=== PATIENT | female | born 1965 | race Caucasian/White ===

== ENCOUNTER 2017-05-17 16:03 | Inpatient (IN) | payer BC, SELFPAY ==
[~2017-05-17] VITALS: Ht 165.1 cm; Wt 65.2 kg
[~2017-05-17 16:03] MED LIST: ALPR.25 PO; ASPI325 PO; HYDCHL12.5 PO; HYDGUAL120 PO; INSU100I6 SC; LEVEMIR FL100 UNIT/1 SC; LISI5 PO; METF500C PO; NICO21TP TOP; SULTRIDS PO
[2017-05-17 16:29] LABS: BASOPHILS ABSOLUTE AUTO 0.03 K/mm3 (0.00-0.23); BASOPHILS PERCENT AUTO 0 % (0-2); EOSINOPHILS ABSOLUTE AUTO 0.15 K/mm3 (0.00-0.68); EOSINOPHILS PERCENT AUTO 1 % (0-6); Hematocrit 36.5 % (33.0-51.0); Hemoglobin 12.8 g/dL (11.5-16.0); IMMATURE GRAN ABSOLUTE AUTO 0.04 K/mm3 (0.00-0.10); IMMATURE GRAN PERCENT AUTO 0 % (0-1); LYMPHOCYTES ABSOLUTE AUTO 1.59 K/mm3 (0.84-5.20); LYMPHOCYTES PERCENT AUTO 11 % (21-46); MONOCYTES ABSOLUTE AUTO 1.04 K/mm3 (0.16-1.47); MONOCYTES PERCENT AUTO 7 % (4-13); Mean Corpuscular HGB 31.9 pg (26.0-34.0); Mean Corpuscular HGB Conc 35.1 g/dL (31.5-36.5); Mean Corpuscular Volume 91 fL (80-100); NEUTROPHILS ABSOLUTE AUTO 12.31 K/mm3 (1.96-9.15); NEUTROPHILS PERCENT AUTO 81 % (41-73); Platelet Count 274 K/mm3 (150-400); RDW Coefficient Variation 11.7 % (11.7-14.2); RDW Standard Deviation 39.3 fL (35.1-46.3); Red Blood Cell Count 4.01 M/mm3 (3.80-5.20); White Blood Cell Count 15.16 K/mm3 (4.00-11.30)
[2017-05-17 16:58] LABS: Alanine Aminotransfer (ALT/SGP 16 U/L (12-78); Albumin, Blood 3.1 g/dL (3.4-5.0); Albumin/Globulin Ratio 0.7 (0.8-1.8); Alk Phos 106 U/L (50-136); Anion Gap 9 mmol/L (6-16); Aspartate Aminotrans (AST/SGOT 13 U/L (12-37); Bilirubin, Total 0.4 mg/dL (0.1-1.0); Blood Urea Nitrogen 18 mg/dL (8-24); Bun/Creatinine Ratio 29.3 (12.0-20.0); CO2, Blood 26 mmol/L (21-32); Calcium, Blood 8.8 mg/dL (8.5-10.1); Chloride, Blood 97 mmol/L (98-108); Creatinine, Blood 0.61 mg/dL (0.40-1.00); Globulin, Blood 4.5 g/dL (2.2-4.0); Glomerular Filtration Rate >60 (60-); Glucose, Blood 188 mg/dL (70-99); Potassium, Blood 3.9 mmol/L (3.5-5.5); Sodium, Blood 132 mmol/L (136-145); Total Protein, Blood 7.6 g/dL (6.4-8.2)
[2017-05-18] MEDS ORDERED: BASAGLAR K100 UNIT/1 SC (04:58)
[2017-05-18] MEDS ORDERED: ASPI325 PO (05:00)
[2017-05-18] MEDS ORDERED: CENTRUM ADULTS1 EACH PO (05:00)
[2017-05-18] MEDS ORDERED: VIT D3 PO (05:03)
[2017-05-18 05:20] LABS: Hematocrit 33.3 % (33.0-51.0); Mean Corpuscular HGB 32.1 pg (26.0-34.0); Mean Corpuscular Volume 89 fL (80-100); Mean Platelet Volume 9.8 fL (9.1-12.4); Platelet Count 238 K/mm3 (150-400); RDW Coefficient Variation 11.6 % (11.7-14.2); RDW Standard Deviation 37.7 fL (35.1-46.3); Red Blood Cell Count 3.74 M/mm3 (3.80-5.20); White Blood Cell Count 11.61 K/mm3 (4.00-11.30)
[2017-05-18 05:37] LABS: Anion Gap 10 mmol/L (6-16); Blood Urea Nitrogen 17 mg/dL (8-24); Bun/Creatinine Ratio 25.5 (12.0-20.0); CO2, Blood 23 mmol/L (21-32); Calcium, Blood 8.4 mg/dL (8.5-10.1); Chloride, Blood 101 mmol/L (98-108); Creatinine, Blood 0.67 mg/dL (0.40-1.00); Glomerular Filtration Rate >60 (60-); Glucose, Blood 110 mg/dL (70-99); Potassium, Blood 4.2 mmol/L (3.5-5.5); Sodium, Blood 134 mmol/L (136-145)
[2017-05-18 08:17] LABS: Source, Urine Clean Catch
[2017-05-18 08:30] LABS: Bilirubin, Urine Neg (Neg); Blood, Urine 5+ (Neg); Glucose Qualitative, Urine Neg (Neg); Ketones, Urine Neg (Neg); Leukocyte Esterase, Urine 2+ (Neg); Nitrite, Urine Neg (Neg); Protein, Urine 2+ (Neg); Urobilinogen, Urine NORM (Normal)
[2017-05-18 08:43] LABS: Appearance, Urine Hazy (Clear); Color, Urine Yellow (P-Yellow)
[2017-05-18 08:45] LABS: Bacteria Mod /hpf; Squamous Epithelial Cells Mod /hpf (Few)
[2017-05-18] MEDS ORDERED: HYDR1TAB94 PO (16:10)
[2017-05-18] MEDS ORDERED: GAVILAX17 GM PO (16:10)
== END 2017-05-18 22:10 | disposition home or self-care (01) | DRG 418 ==
LOC: ER 16:03 → SURS 17:56
PROVIDERS: Internal Medicine; Psychiatry & Neurology Psychiatry; Surgery
PROC: BF031ZZ Plain Radiography of Gallbladder and Bile Ducts using Low Osmolar Contrast (ICD-10-PCS; 2017-05-18)
PROC: 0FT44ZZ Resection of Gallbladder, Percutaneous Endoscopic Approach (ICD-10-PCS; principal; 2017-05-18 09:00)
DX: K81.0 Acute cholecystitis (principal); E87.1 Hypo-osmolality and hyponatremia; E11.40 Type 2 diabetes mellitus with diabetic neuropathy, unspecified; I10 Essential (primary) hypertension; F17.200 Nicotine dependence, unspecified, uncomplicated; Z79.4 Long term (current) use of insulin; Z79.84 Long term (current) use of oral hypoglycemic drugs; Z79.899 Other long term (current) drug therapy
CPT/HCPCS: 36415; 74300; 76705; 80048; 80053; 81001; 81025; 82947; 83036; 83690; 84439; 84443; 85025; 85027; 87086; 88304; 96374; 96375; 99285; C1729; C9113; J1100; J1170; J1650; J1885; J2250; J2370; J2405; J2543; J2765; J3010; J7030; J7042; J7120

== ENCOUNTER 2017-10-11 23:33 | Emergency (ER) | payer BC, SELFPAY ==
[~2017-10-11 23:33] MED LIST changes: +BASAGLAR K100 UNIT/1 SC; +CENTRUM ADULTS1 EACH PO; +GAVILAX17 GM PO; +HYDR1TAB94 PO; +VIT D3 PO
[2017-10-12] MEDS ORDERED: Norco 5-325 Ta1 EACH PO (09:30)
[2017-10-12] MEDS ORDERED: KETO10 PO (09:30)
== END 2017-10-12 01:30 | disposition left against medical advice (07) ==
LOC: ER 23:33
DX: Z53.21 Procedure and treatment not carried out due to patient leaving prior to being seen by health care provider (principal)

== ENCOUNTER 2017-10-12 08:33 | Emergency (ER) | payer BC, SELFPAY ==
[~2017-10-12] VITALS: Ht 165.1 cm; Wt 70.3 kg
[2017-10-12] MEDS ORDERED: KETO10 PO (09:30)
[2017-10-12] MEDS ORDERED: Norco 5-325 Ta1 EACH PO (09:30)
== END 2017-10-12 09:50 | disposition home or self-care (01) ==
LOC: ER 08:33
DX: M75.51 Bursitis of right shoulder (principal); I10 Essential (primary) hypertension; E11.9 Type 2 diabetes mellitus without complications; E78.5 Hyperlipidemia, unspecified; F17.200 Nicotine dependence, unspecified, uncomplicated; Z79.899 Other long term (current) drug therapy; Z79.4 Long term (current) use of insulin; Z79.82 Long term (current) use of aspirin
CPT/HCPCS: 73030; 99283

== ENCOUNTER 2017-12-16 13:06 | Observation (INO) | payer BC, SELFPAY ==
[~2017-12-16] VITALS: Ht 160 cm; Wt 78.6 kg
[~2017-12-16 13:06] MED LIST changes: +KETO10 PO; +Norco 5-325 Ta1 EACH PO
[2017-12-16] MEDS ORDERED: INSULANPEN SC (13:43)
[2017-12-16 14:13] LABS: BASOPHILS ABSOLUTE AUTO 0.06 K/mm3 (0.00-0.23); BASOPHILS PERCENT AUTO 1 % (0-2); EOSINOPHILS PERCENT AUTO 2 % (0-6); Hematocrit 41.6 % (33.0-51.0); Hemoglobin 14.7 g/dL (11.5-16.0); IMMATURE GRAN ABSOLUTE AUTO 0.02 K/mm3 (0.00-0.10); IMMATURE GRAN PERCENT AUTO 0 % (0-1); LYMPHOCYTES ABSOLUTE AUTO 1.91 K/mm3 (0.84-5.20); LYMPHOCYTES PERCENT AUTO 21 % (21-46); MONOCYTES ABSOLUTE AUTO 0.57 K/mm3 (0.16-1.47); MONOCYTES PERCENT AUTO 6 % (4-13); Mean Corpuscular HGB 31.7 pg (26.0-34.0); Mean Corpuscular HGB Conc 35.3 g/dL (31.5-36.5); Mean Corpuscular Volume 90 fL (80-100); Mean Platelet Volume 10.6 fL (9.1-12.4); NEUTROPHILS ABSOLUTE AUTO 6.57 K/mm3 (1.96-9.15); NEUTROPHILS PERCENT AUTO 71 % (41-73); Platelet Count 256 K/mm3 (150-400); RDW Coefficient Variation 12.2 % (11.7-14.2); RDW Standard Deviation 39.8 fL (35.1-46.3); Red Blood Cell Count 4.63 M/mm3 (3.80-5.20); White Blood Cell Count 9.33 K/mm3 (4.00-11.30)
[2017-12-16 14:26] LABS: International Normalized Ratio 0.95; Prothrombin Time Results 9.8 Sec (9.7-11.5)
[2017-12-16 14:29] LABS: Alanine Aminotransfer (ALT/SGP 22 U/L (12-78); Albumin, Blood 3.4 g/dL (3.4-5.0); Albumin/Globulin Ratio 0.7 (0.8-1.8); Alk Phos 119 U/L (50-136); Anion Gap 7 mmol/L (6-16); Aspartate Aminotrans (AST/SGOT 17 U/L (12-37); Bilirubin, Total 0.4 mg/dL (0.1-1.0); Blood Urea Nitrogen 19 mg/dL (8-24); Bun/Creatinine Ratio 28.1 (12.0-20.0); CO2, Blood 24 mmol/L (21-32); Calcium, Blood 9.1 mg/dL (8.5-10.1); Chloride, Blood 104 mmol/L (98-108); Creatinine, Blood 0.68 mg/dL (0.40-1.00); Globulin, Blood 4.6 g/dL (2.2-4.0); Glomerular Filtration Rate >60 (60-); Glucose, Blood 210 mg/dL (70-99); Potassium, Blood 4.4 mmol/L (3.5-5.5); Sodium, Blood 135 mmol/L (136-145)
[2017-12-16 15:25] LABS: Source, Urine Clean Catch
[2017-12-16 15:32] LABS: Appearance, Urine Hazy (Clear); Blood, Urine 2+ (Neg); Color, Urine Yellow (P-Yellow); Glucose Qualitative, Urine Neg (Neg); Ketones, Urine 1+ (Neg); Leukocyte Esterase, Urine 3+ (Neg); Nitrite, Urine Neg (Neg); Protein, Urine 2+ (Neg); Specific Gravity, Urine 1.025 (1.003-1.022); Urobilinogen, Urine 1+ (Normal)
[2017-12-16 15:46] LABS: U Amphetamine Screen DETECTED; U Barbituate Screen Not Detected; U Benzodiazapine Screen DETECTED; U Buprenorphine Screen Not Detected; U Cannabinoids Screen DETECTED; U Cocaine Screen Not Detected; U Methadone Screen Not Detected; U Methamphetamine Screen DETECTED; U Opiates Screen Not Detected; U Oxycodone Screen Not Detected; U Phencyclidine Screen Not Detected; U Propoxyphene Screen Not Detected
[2017-12-16 15:47] LABS: Bilirubin, Urine 1+ (Neg)
[2017-12-16 15:48] LABS: Bacteria Many /hpf; Squamous Epithelial Cells Mod /hpf (Few); White Blood Cells, Urine 25-50 /hpf (0-5)
[2017-12-16 15:49] LABS: Hyaline Casts 0-2 /lpf (0-2)
[2017-12-17 04:31] LABS: Hematocrit 38.7 % (33.0-51.0); Hemoglobin 13.4 g/dL (11.5-16.0); Mean Corpuscular HGB 31.1 pg (26.0-34.0); Mean Corpuscular HGB Conc 34.6 g/dL (31.5-36.5); Mean Corpuscular Volume 90 fL (80-100); Mean Platelet Volume 10.5 fL (9.1-12.4); Platelet Count 234 K/mm3 (150-400); RDW Standard Deviation 39.8 fL (35.1-46.3); Red Blood Cell Count 4.31 M/mm3 (3.80-5.20); White Blood Cell Count 8.41 K/mm3 (4.00-11.30)
[2017-12-17 04:47] LABS: Anion Gap 7 mmol/L (6-16); Blood Urea Nitrogen 28 mg/dL (8-24); Bun/Creatinine Ratio 32.8 (12.0-20.0); CO2, Blood 27 mmol/L (21-32); Calcium, Blood 8.7 mg/dL (8.5-10.1); Chloride, Blood 103 mmol/L (98-108); Creatinine, Blood 0.85 mg/dL (0.40-1.00); Glomerular Filtration Rate >60 (60-); Glucose, Blood 144 mg/dL (70-99); Sodium, Blood 137 mmol/L (136-145)
[2017-12-17] MEDS ORDERED: CLOP75 PO (14:37)
[2017-12-17] MEDS ORDERED: Bactrim Ds Tab1 EACH PO (14:38)
[2017-12-17] MEDS ORDERED: ACIDOPHILUS LA1 EACH PO (14:39)
[2017-12-17] MEDS ORDERED: Augmentin 875-1 EACH PO (14:40)
== END 2017-12-17 15:05 | disposition home or self-care (01) ==
LOC: ER 13:06 → MEDS 13:07
PROVIDERS: Nurse Practitioner Acute Care; Physician Assistant
DX: G45.9 Transient cerebral ischemic attack, unspecified (principal); N39.0 Urinary tract infection, site not specified; E11.9 Type 2 diabetes mellitus without complications; I10 Essential (primary) hypertension; F41.9 Anxiety disorder, unspecified; F17.210 Nicotine dependence, cigarettes, uncomplicated; F19.10 Other psychoactive substance abuse, uncomplicated; Z79.4 Long term (current) use of insulin; Z79.899 Other long term (current) drug therapy; Z79.82 Long term (current) use of aspirin
CPT/HCPCS: 36415; 70450; 80048; 80053; 81001; 82947; 83605; 85025; 85027; 85610; 87040; 87086; 87147; 93005; 93010; 93306; 93880; 96361; 96372; 99285-25; G0378; J1650; J7030

== ENCOUNTER 2023-06-08 15:23 | Inpatient (IN) | payer MEDICAID ==
[~2023-06-08] VITALS: Ht 160 cm; Wt 52.2 kg
[~2023-06-08 15:23] MED LIST changes: +ACIDOPHILUS LA1 EACH PO; +Augmentin 875-1 EACH PO; +Bactrim Ds Tab1 EACH PO; +CLOP75 PO; +INSULANPEN SC
[2023-06-08 16:52] LABS: BASOPHILS ABSOLUTE AUTO 0.07 K/mm3 (0.00-0.23); BASOPHILS PERCENT AUTO 1 % (0-2); EOSINOPHILS ABSOLUTE AUTO 0.27 K/mm3 (0.00-0.68); EOSINOPHILS PERCENT AUTO 3 % (0-6); Hematocrit 39.4 % (33.0-51.0); IMMATURE GRAN ABSOLUTE AUTO 0.03 K/mm3 (0.00-0.10); IMMATURE GRAN PERCENT AUTO 0 % (0-1); LYMPHOCYTES ABSOLUTE AUTO 2.69 K/mm3 (0.84-5.20); LYMPHOCYTES PERCENT AUTO 28 % (21-46); MONOCYTES ABSOLUTE AUTO 0.55 K/mm3 (0.16-1.47); MONOCYTES PERCENT AUTO 6 % (4-13); Mean Corpuscular HGB 31.1 pg (26.0-34.0); Mean Corpuscular HGB Conc 35.5 g/dL (31.5-36.5); Mean Corpuscular Volume 88 fL (80-100); Mean Platelet Volume 10.5 fL (9.1-12.4); NEUTROPHILS ABSOLUTE AUTO 6.04 K/mm3 (1.96-9.15); NEUTROPHILS PERCENT AUTO 63 % (41-73); Platelet Count 312 K/mm3 (150-400); RDW Coefficient Variation 11.7 % (11.7-14.2); RDW Standard Deviation 37.5 fL (35.1-46.3); White Blood Cell Count 9.65 K/mm3 (4.00-11.30)
[2023-06-08 17:13] LABS: Source, Urine Clean Catch
[2023-06-08 17:18] LABS: Appearance, Urine Hazy (Clear); Bilirubin, Urine Neg (Neg); Blood, Urine 1+ (Neg); Color, Urine Yellow (P-Yellow); Glucose Qualitative, Urine 3+ (Neg); Ketones, Urine 1+ (Neg); Leukocyte Esterase, Urine 2+ (Neg); Nitrite, Urine Pos (Neg); Protein, Urine 3+ (Neg); Specific Gravity, Urine 1.025 (1.003-1.022); Urobilinogen, Urine NORM (Normal)
[2023-06-08 17:24] LABS: Red Blood Cells, Urine 0-2 /hpf (0-2); White Blood Cells, Urine 25-50 /hpf (0-5)
[2023-06-08 17:25] LABS: Bacteria Many /hpf; Squamous Epithelial Cells Mod /hpf (Few)
[2023-06-08 17:28] LABS: Albumin, Blood 2.9 g/dL (3.4-5.0); Albumin/Globulin Ratio 0.7 (0.8-1.8); Bilirubin, Total 0.6 mg/dL (0.1-1.0); Bun/Creatinine Ratio 38.2 (12.0-20.0); Calcium, Blood 9.1 mg/dL (8.5-10.1); Creatinine, Blood 0.76 mg/dL (0.40-1.00); Globulin, Blood 4.1 g/dL (2.2-4.0); Potassium, Blood 3.9 mmol/L (3.5-5.5)
[2023-06-08] MEDS ORDERED: CefTRIAXone Sodium 1,000 MG in NS 50 ML IV ONE (20:45)
[2023-06-08] MEDS ORDERED: NS 1,000 ML IV SCH ×2 (21:00→21:20)
[2023-06-08] MEDS ORDERED: Aspirin 81 MG Chew PO ONE (21:20)
[2023-06-08] MEDS ORDERED: ALPRAZolam 0.25 MG Tab PO PRN (21:20)
[2023-06-08] MEDS ORDERED: Ondansetron HCl 2 MG / ML 2ML Vial IV PRN (21:20)
[2023-06-08 21:25] LABS: Source, Urine Straight Cath
[2023-06-08] MEDS ORDERED: Acetaminophen 325 MG TABLET PO PRN (21:25)
[2023-06-08] MEDS ORDERED: FLU VACC QS2023-24(6MOS UP)/PF 60 MCG/0.5 ML SYRINGE IM SCH (21:25)
[2023-06-08 21:29] LABS: Appearance, Urine Hazy (Clear); Bilirubin, Urine Neg (Neg); Blood, Urine 1+ (Neg); Color, Urine Yellow (P-Yellow); Glucose Qualitative, Urine 2+ (Neg); Ketones, Urine 1+ (Neg); Leukocyte Esterase, Urine Neg (Neg); Nitrite, Urine Pos (Neg); Protein, Urine 3+ (Neg); Specific Gravity, Urine 1.025 (1.003-1.022); Urobilinogen, Urine NORM (Normal)
[2023-06-08] MEDS ORDERED: GLIP5 PO (21:37)
[2023-06-08] MEDS ORDERED: ATOR20 PO (21:37)
[2023-06-08] MEDS ORDERED: INSULANI SC (21:38)
[2023-06-08 21:42] LABS: Mucus Mod (0-Heavy)
[2023-06-08 21:43] LABS: Amorphous Light (0-Heavy); Bacteria Many /hpf; Red Blood Cells, Urine 0-2 /hpf (0-2); Squamous Epithelial Cells Few /hpf (Few)
[2023-06-08 21:45] LABS: U Amphetamine Screen DETECTED; U Barbituate Screen Not Detected; U Benzodiazapine Screen Not Detected; U Buprenorphine Screen Not Detected; U Cannabinoids Screen Not Detected; U Cocaine Screen Not Detected; U Methadone Screen Not Detected; U Methamphetamine Screen DETECTED; U Opiates Screen Not Detected; U Oxycodone Screen Not Detected; U Phencyclidine Screen Not Detected
--- NOTE | 2023-06-08 23:40 | NUR ---
ADMISSION PT ADITTED TO ROOM 356 FROM THE ED, ARRIVED VIA WC, SBA TO BED, A&O X4, RA, VSS, DENIES PAIN. PT ORIENTED TO ROOM, CALL LIGHT IN REACH,
[2023-06-08 23:41] VITALS: BP 167/66
[2023-06-09 02:56] VITALS: BP 159/79
--- NOTE | 2023-06-09 05:34 | NUR ---
SHIFT SUMMARY PT HAS BEEN RESTING QUIETLY SINCE ADMISSION, A&O X4, PERRLA, NO DEFICITS NOTED, VSS/RA, SBA TO THE BATHROOM, DELMAR PO INTAKE, VOIDING WNL, SLEEPING AT THIS TIME, RESP UNLABORED, CALL LIGHT IN REACH.
[2023-06-09 06:47] LABS: Anion Gap 4 mmol/L (6-16); Blood Urea Nitrogen 29 mg/dL (8-24); Bun/Creatinine Ratio 39.2 (12.0-20.0); CHOL/HDL RATIO 5.6; CO2, Blood 26 mmol/L (21-32); Chloride, Blood 105 mmol/L (98-108); Cholesterol 173 mg/dL (50-200); Creatinine, Blood 0.74 mg/dL (0.40-1.00); Glomerular Filtration Rate 93 (60-); Glucose, Blood 409 mg/dL (70-99); HDL Cholesterol 31 mg/dL (>39); LDL/HDL RATIO 2.2; Low Density Lipoprotein Chol 68 mg/dL (0-110); Potassium, Blood 3.9 mmol/L (3.5-5.5); Sodium, Blood 135 mmol/L (136-145); Triglycerides 368 mg/dL (30-160); Very Low Density Lipoprot Chol 73 mg/dL (6-32)
[2023-06-09] MEDS ORDERED: Insulin Human Lispro 100 Units/ML 3ML Syringe SC SCH ×2 (07:30→11:30)
[2023-06-09 08:19] VITALS: BP 176/71
[2023-06-09] MEDS ORDERED: Aspirin 81 MG Chew PO SCH (09:00)
[2023-06-09] MEDS ORDERED: Atorvastatin 40 MG Tab PO SCH (09:00)
[2023-06-09] MEDS ORDERED: Enoxaparin 40 MG/0.4 ML SYR SC SCH (09:00)
[2023-06-09 11:33] VITALS: BP 169/74
[2023-06-09] MEDS ORDERED: Clopidogrel Bisulfate 75 MG Tab PO SCH (16:00)
[2023-06-09 17:09] VITALS: BP 249/95
[2023-06-09] MEDS ORDERED: CloNIDine 0.1 MG Tab PO PRN (18:35)
--- NOTE | 2023-06-09 18:45 | NUR ---
SHIFT SUMMARY: NO ACUTE EVENTS. NO DEFICITS NOTED ON THIS AUTHOR'S NEURO EXAM. NO EVENTS ON TELEMETRY, SR 70-90'S. SSI INCREASED TO MED CORRECTION SCALE. DENIES PAIN. ECHO, MRI, CAROTID U/S, AND VENOUS DUPLEX COMPLETED. USING BSC INDEPENDENTLY. HAD SHOWER TODAY, INDEPENDENT AFTER SET UP. LIKELY D/C HOME TOMORROW.
[2023-06-09 19:55] VITALS: BP 185/73
[2023-06-09] MEDS ORDERED: Insulin Glargine-Yfgn 100 Unit/mL 3 ML SYR SC SCH ×2 (21:00)
[2023-06-10] VITALS (8 sets, daily range): BP systolic 95–200; BP diastolic 58–90
[2023-06-10 05:03] LABS: BASOPHILS ABSOLUTE AUTO 0.09 K/mm3 (0.00-0.23); BASOPHILS PERCENT AUTO 1 % (0-2); EOSINOPHILS ABSOLUTE AUTO 0.37 K/mm3 (0.00-0.68); EOSINOPHILS PERCENT AUTO 4 % (0-6); Hematocrit 34.8 % (33.0-51.0); Hemoglobin 12.4 g/dL (11.5-16.0); IMMATURE GRAN ABSOLUTE AUTO 0.01 K/mm3 (0.00-0.10); IMMATURE GRAN PERCENT AUTO 0 % (0-1); LYMPHOCYTES ABSOLUTE AUTO 3.15 K/mm3 (0.84-5.20); LYMPHOCYTES PERCENT AUTO 34 % (21-46); MONOCYTES ABSOLUTE AUTO 0.63 K/mm3 (0.16-1.47); MONOCYTES PERCENT AUTO 7 % (4-13); Mean Corpuscular HGB 30.8 pg (26.0-34.0); Mean Corpuscular HGB Conc 35.6 g/dL (31.5-36.5); Mean Corpuscular Volume 87 fL (80-100); Mean Platelet Volume 10.1 fL (9.1-12.4); NEUTROPHILS ABSOLUTE AUTO 5.14 K/mm3 (1.96-9.15); NEUTROPHILS PERCENT AUTO 55 % (41-73); Platelet Count 244 K/mm3 (150-400); RDW Coefficient Variation 11.6 % (11.7-14.2); RDW Standard Deviation 36.9 fL (35.1-46.3); Red Blood Cell Count 4.02 M/mm3 (3.80-5.20); White Blood Cell Count 9.39 K/mm3 (4.00-11.30)
[2023-06-10 05:33] LABS: Bun/Creatinine Ratio 26.2 (12.0-20.0); Creatinine, Blood 0.57 mg/dL (0.40-1.00); Potassium, Blood 3.8 mmol/L (3.5-5.5)
--- NOTE | 2023-06-10 06:41 | NUR ---
Shift Summary Pt AOx4, no deficits on neuro exam, no acute changes. Pt was hypertensive t/o the night, however per chart notes and PRN order we are doing permissive hypertension unless systolic is greater than 200 which did not happen. She is pleasant and cooperative with care.
[2023-06-10] MEDS ORDERED: Citalopram Hydrobromide 20 MG Tab PO SCH (09:00)
[2023-06-10] MEDS ORDERED: CloNIDine 0.1 MG Tab PO PRN (09:25)
[2023-06-10] MEDS ORDERED: Lisinopril 5 MG Tab PO SCH ×2 (10:00)
--- NOTE | 2023-06-10 10:00 | NUR ---
LISINOPRIL DOSE CHANGE- CALLED DR ZAMUDIO, PT BP WAS 190'S THIS MORNING,LISINOPRIL WAS ORDERED, ON RECHECK PRIOR TO LISINOPRIL SBP WAS 131. CALLED DR ZAMUDIO AND RECIEVED ORDER TO CHANGE TO 2.5MG DAILY AND ADMINISTER THAT DOSE TODAY. ORDER CHANGED IN ORDER MANAGEMENT.
--- NOTE | 2023-06-10 10:40 | NUR ---
PT DAUGHTER ASKED ABOUT URINE CULTURE- PT HAS A URINE CULTURE THAT WAS CLEAN CATCH THAT RESULTED IN GROWTH BUT A STRAIGHT CATH CULTURE THAT SHOWS UNKNOWN GROWTH, PRELIMINARY RESULT. PT DAUGHTER ASKED ABOUT ABX. CALLED DR ZAMUDIO, SHE IS PLACING AN ORDER FOR ABX.
[2023-06-10] MEDS ORDERED: Amoxicillin/Clavulanate K 875 MG Tab PO SCH (11:00)
--- NOTE | 2023-06-10 11:24 | NUR ---
PT DAUGHTER EXPRESSED CONCERN- AGTER SITTING WITH THE PT FOR A WHILE HER DAUGHTER CAME INTO THE [facility] TO ASKED THAT THE DR BE INFORMED THAT THE PT SEEMS VERY OFF WHEN COMPARED TO PREVIOUS. SHE IS CONCERNED THAT THE PT IS MORE TIRED AND THAT SHE IS SPEAKING IN A STREAM OF THOUGHTS THAT SEEM TO MAKE NO SENSE TO HER. PT DOES SEEM A LITTLE SLEEPY TODAY, VSS AT THIS TIME. NO S&S OF DISTRESS NOTED.
--- NOTE | 2023-06-10 19:45 | NUR ---
SHIFT SUMMARY- PT HAS HAD HIGH BPS OFF AND ON TODAY. MEDICATED WITH XANAX IN LINDA OF CLONIDINE AFTER SPEAKING TO DR ZAMUDIO, SOME POSSIBLE CONCERN FOR METH WITHDRAWL. BP ONLY REDUCED A FEW POINTS AFTER AN HOUR, MEDICATED WITH CLONIDINE AND SBP WAS 166 ON FOLLOW UP BP. PT IN BED, SLEEPING AT THE TIME OF REPORT, SHE WOKE TO STAFF VOICES AND PARTICIPATED IN BEDSIDE REPORT. NO S&S OF DISTRESS NOTED AT THE TIME OF BEDSIDE REPORT. PASSED ON TO NIGHT RN PT PULLED HER IV ACCIDENTALLY AT 1830. SHE WILL NEED NEW ACCESS.
[2023-06-10] MEDS ORDERED: Lactobacil 2-S.Thermo-Bifido 1 1 Cap PO SCH (21:00)
[2023-06-11 02:47] VITALS: BP 137/64
--- NOTE | 2023-06-11 06:21 | NUR ---
SHIFT SUMMARY: PT IS ADMITTED FOR ACUTE CVA AND IS A FULL CODE. IS ALERT AND ABLE TO MAKE NEEDS KNOWN. ADLs HAVE BEEN 1P STANDBY DURING THIS SHIFT. DENIES PAIN OR DISCOMFORT WHEN ASKED. PLACED 22G IV IN LEFT FOREARM DAY NURSE REPORTED LAST ONE WAS FOUND NOT TO BE THERE JUST BEFORE SHIFT CHANGE. SARAI REPORTS SINUS AT 61. DAUGHTER CALLED AND SPOKE WITH THIS NURSE RIGHT AFTER SHIFT ASSESSMENT AND IV PLACEMENT. DAUGHTER STATED THAT SHE WAS CONCERNED ABOUT HER MOTHER SHE HAD JUST GOTTEN OFF THE PHONE WITH HER AND STATED THAT SHE WAS SLURRING HER SPEECH AND NOT ABLE TO MAKE RATIONAL STATEMENTS. THIS NURSE INFORMED THE DAUGHTER THAT THE REASON THAT IT TOOK A MINUTE TO ANSWER THE PHONE WAS DUE TO THE ASSESSMENT AND IV PLACEMENT ON HER MOTHER. THOSE ITEMS THAT SHE WAS EXPRESSING CONCERN OVER WERE NOT NOTED DURING THAT TIME PERIOD. THE ONLY THING THAT THIS NURSE NOTED WAS SOME EXHAUSTION TYPE SYMPTOMS WHERE SHE MIGHT MIGHT HAVE BEEN TRYING TO FIND THE WORD SHE WAS LOOKING FOR A BIT LONGER THAN AN AVERAGE PERSON. BUT THAT WOULD BE EXPECTED GIVEN HISTORY OF THE DAY AND ADMITTING DX.
[2023-06-11 07:36] VITALS: BP 134/70
[2023-06-11] MEDS ORDERED: Lisinopril 5 MG Tab PO SCH (09:00)
[2023-06-11] MEDS ORDERED: AMOCLA875 PO (11:16)
[2023-06-11] MEDS ORDERED: ASPI81CH PO (11:17)
[2023-06-11] MEDS ORDERED: CELEXA40 M1 PO (11:18)
[2023-06-11] MEDS ORDERED: CLOP75 PO (11:19)
[2023-06-11] MEDS ORDERED: LACT PO (11:19)
--- NOTE | 2023-06-11 15:42 | NUR ---
DISCHARGE NOTE- PT AND DAUGHTER RECIEVED VERBAL AND WRITTEN DISCHARGE INSTRUCTIONS AND ACKNOWLEDGED UNDERSTANDING OF THEM. PT IV AND TELE DC'D PRIOR TO DISCHARGE AND SHE WAS ESCORTED OUT VIA WC BY THE FARM MANAGER NO S&S OF DISTRESS AT THE TIME OF DISCHARGE.
== END 2023-06-11 13:36 | disposition home health service (06) | DRG 65 ==
LOC: ER 15:23 → MEDS 15:24
PROVIDERS: Internal Medicine; Nurse Practitioner Acute Care; Physician Assistant; ADMIT Internal Medicine
DX: I63.532 Cerebral infarction due to unspecified occlusion or stenosis of left posterior cerebral artery (principal); F15.23 Other stimulant dependence with withdrawal; G81.91 Hemiplegia, unspecified affecting right dominant side; N39.0 Urinary tract infection, site not specified; R20.0 Anesthesia of skin; I10 Essential (primary) hypertension; E11.9 Type 2 diabetes mellitus without complications; E78.5 Hyperlipidemia, unspecified; F17.210 Nicotine dependence, cigarettes, uncomplicated; F41.9 Anxiety disorder, unspecified; H54.7 Unspecified visual loss; B96.20 Unspecified Escherichia coli [E. coli] as the cause of diseases classified elsewhere; Z71.51 Drug abuse counseling and surveillance of drug abuser; Z90.89 Acquired absence of other organs; Z79.2 Long term (current) use of antibiotics; Z79.4 Long term (current) use of insulin; Z79.82 Long term (current) use of aspirin; Z79.02 Long term (current) use of antithrombotics/antiplatelets; Z79.899 Other long term (current) drug therapy
CPT/HCPCS: 36415; 70450; 70551; 80048; 80053; 80061; 81001; 82010; 82947; 85025; 87077; 87086; 87186; 93306; 93880; 93970; 96361; 96365; 96372; 97116; 97162; 97530; 99285-25; A9270; G0378; J0696; J1650; J1815; J7030; P9612

== ENCOUNTER 2023-09-08 20:10 | Emergency (ER) | payer OTHER ==
[~2023-09-08] VITALS: Ht 165.1 cm; Wt 71.7 kg
[2023-09-08 23:56] VITALS: BP 180/68
== END 2023-09-08 23:56 | disposition home or self-care (01) ==
LOC: ER 20:10
DX: I10 Essential (primary) hypertension (principal); R21 Rash and other nonspecific skin eruption; R60.0 Localized edema; L30.9 Dermatitis, unspecified; E11.9 Type 2 diabetes mellitus without complications; E78.5 Hyperlipidemia, unspecified; F17.210 Nicotine dependence, cigarettes, uncomplicated; Z79.4 Long term (current) use of insulin; Z79.82 Long term (current) use of aspirin; Z79.899 Other long term (current) drug therapy

== ENCOUNTER 2023-11-28 20:50 | Inpatient (IN) | payer MEDICARE, OTHER ==
[~2023-11-28] VITALS: Ht 165.1 cm; Wt 71.0 kg
[~2023-11-28 20:50] MED LIST changes: +AMOCLA875 PO; +ASPI81CH PO; +ATOR80 PO; +CELEXA40 M1 PO; +GLIP5 PO; +INSULANI SC; +LACT PO
[2023-11-28 21:38] LABS: BASOPHILS PERCENT AUTO 1 % (0-2); EOSINOPHILS ABSOLUTE AUTO 0.34 K/mm3 (0.00-0.68); EOSINOPHILS PERCENT AUTO 3 % (0-6); Hematocrit 34.4 % (33.0-51.0); Hemoglobin 12.3 g/dL (11.5-16.0); IMMATURE GRAN ABSOLUTE AUTO 0.02 K/mm3 (0.00-0.10); IMMATURE GRAN PERCENT AUTO 0 % (0-1); LYMPHOCYTES ABSOLUTE AUTO 2.07 K/mm3 (0.84-5.20); LYMPHOCYTES PERCENT AUTO 21 % (21-46); MONOCYTES ABSOLUTE AUTO 0.75 K/mm3 (0.16-1.47); MONOCYTES PERCENT AUTO 8 % (4-13); Mean Corpuscular HGB 31.4 pg (26.0-34.0); Mean Corpuscular HGB Conc 35.8 g/dL (31.5-36.5); Mean Corpuscular Volume 88 fL (80-100); Mean Platelet Volume 10.5 fL (9.1-12.4); NEUTROPHILS ABSOLUTE AUTO 6.67 K/mm3 (1.96-9.15); NEUTROPHILS PERCENT AUTO 67 % (41-73); Platelet Count 288 K/mm3 (150-400); RDW Coefficient Variation 12.1 % (11.7-14.2); RDW Standard Deviation 38.5 fL (35.1-46.3); Red Blood Cell Count 3.92 M/mm3 (3.80-5.20); White Blood Cell Count 9.95 K/mm3 (4.00-11.30)
[2023-11-28 21:56] LABS: Albumin, Blood 2.8 g/dL (3.4-5.0); Albumin/Globulin Ratio 0.7 (0.8-1.8); Bilirubin, Total 0.5 mg/dL (0.1-1.0); Bun/Creatinine Ratio 21.4 (12.0-20.0); Calcium, Blood 8.9 mg/dL (8.5-10.1); Creatinine, Blood 1.12 mg/dL (0.40-1.00); Globulin, Blood 4.1 g/dL (2.2-4.0); Potassium, Blood 4.1 mmol/L (3.5-5.5); Total Protein, Blood 6.9 g/dL (6.4-8.2)
[2023-11-28] MEDS ORDERED: LOSARTAN-HCTZ1 EAC6 PO (22:04)
[2023-11-28] MEDS ORDERED: MYRBETRIQ25 MG PO (22:05)
[2023-11-28] MEDS ORDERED: ZOLOFT25 MG PO (22:05)
[2023-11-28 22:35] LABS: Source, Urine Straight Cath
[2023-11-28 22:38] LABS: Bilirubin, Urine Neg (Neg); Blood, Urine Neg (Neg); Glucose Qualitative, Urine Neg (Neg); Ketones, Urine Neg (Neg); Leukocyte Esterase, Urine Neg (Neg); Nitrite, Urine Neg (Neg); Protein, Urine 2+ (Neg); Specific Gravity, Urine 1.005 (1.003-1.022); Urobilinogen, Urine NORM (Normal)
[2023-11-28 22:40] LABS: Appearance, Urine Clear (Clear); Color, Urine Pale Yellow (P-Yellow)
[2023-11-28 22:53] LABS: Bacteria Rare /hpf; Granular Casts 0-2 /lpf (0); Red Blood Cells, Urine Not Seen /hpf (0-2); Squamous Epithelial Cells Rare /hpf (Few); White Blood Cells, Urine 0-2 /hpf (0-5); Yeast/Fungi Urine Few /hpf
[2023-11-28 23:14] LABS: Influenza A, PCR NEGATIVE (NEGATIVE); Influenza B, PCR NEGATIVE (NEGATIVE); Resp Syncytial Virus, PCR NEGATIVE (NEGATIVE); SARS-Cov-2 (COVID-19) PCR, MMC NEGATIVE (NEGATIVE)
[2023-11-28] MEDS ORDERED: Acetaminophen 325 MG TABLET PO PRN (23:30)
[2023-11-28] MEDS ORDERED: Clopidogrel Bisulfate 75 MG Tab PO ONE (23:40)
[2023-11-28] MEDS ORDERED: NS 1,000 ML IV ONE (23:45)
[2023-11-29] VITALS (7 sets, daily range): BP systolic 166–221; BP diastolic 62–81
[2023-11-29 01:38] LABS: U Amphetamine Screen Not Detected; U Barbituate Screen Not Detected; U Benzodiazapine Screen Not Detected; U Buprenorphine Screen Not Detected; U Cannabinoids Screen Not Detected; U Cocaine Screen Not Detected; U Methadone Screen Not Detected; U Methamphetamine Screen Not Detected; U Opiates Screen Not Detected; U Oxycodone Screen Not Detected; U Phencyclidine Screen Not Detected
--- NOTE | 2023-11-29 03:36 | NUR ---
ADMIT NOTE 58 YR OLD FEMALE ADMITTED TO FLOOR FROM THE ED WITH DX OF AMS, POSSIBLE CVA. IN FOR OBSERVATION. ED RN REPORTED PT RECENT CVA IN JUNE WITH RIGHT SIDE WEAKNESS, BUT IN THIS TIME WITH POSSIBLE CVA WITH LEFT SIDE WEAKNESS. ED RN REPORTED PT CAME IN WITH USE OF WHEELCHAIR SHE COULDNT WALK. AND HER COGNITION WAS ALTERED. BUT THAT IN THE ED HER COGNITIVE ABILITIES SEEMED TO HAVE IMPROVED AND WAS A/O X 4. UPON ARRIVAL AT FLOOR, A/O X 4. ORIENTED TO USE OF CALL LIGHT. WAS ABLE TO TRANSFER FROM THE GURNEY TO THE BED WITH LITTLE ASSIST. ABLE TO REPOSITION SELF IN BED WITHOUT ASSIST. CALL LIGHT IN ERACH, RAILS UP X 2 AND BED IN LOW POSITION FOR SAFETY. SEE DOCUMENTATION RE NEURO CHECKS.
[2023-11-29 05:34] LABS: BASOPHILS ABSOLUTE AUTO 0.11 K/mm3 (0.00-0.23); BASOPHILS PERCENT AUTO 1 % (0-2); EOSINOPHILS ABSOLUTE AUTO 0.43 K/mm3 (0.00-0.68); EOSINOPHILS PERCENT AUTO 5 % (0-6); Hematocrit 32.2 % (33.0-51.0); Hemoglobin 11.3 g/dL (11.5-16.0); IMMATURE GRAN ABSOLUTE AUTO 0.03 K/mm3 (0.00-0.10); IMMATURE GRAN PERCENT AUTO 0 % (0-1); LYMPHOCYTES ABSOLUTE AUTO 2.16 K/mm3 (0.84-5.20); LYMPHOCYTES PERCENT AUTO 24 % (21-46); MONOCYTES ABSOLUTE AUTO 0.96 K/mm3 (0.16-1.47); MONOCYTES PERCENT AUTO 10 % (4-13); Mean Corpuscular HGB Conc 35.1 g/dL (31.5-36.5); Mean Corpuscular Volume 88 fL (80-100); Mean Platelet Volume 10.4 fL (9.1-12.4); NEUTROPHILS ABSOLUTE AUTO 5.51 K/mm3 (1.96-9.15); NEUTROPHILS PERCENT AUTO 60 % (41-73); Platelet Count 292 K/mm3 (150-400); Red Blood Cell Count 3.65 M/mm3 (3.80-5.20)
--- NOTE | 2023-11-29 05:39 | NUR ---
SHIFT SUMMARY PATIENT ADMITTED WITH ALTERTERED MENTAL STATUS, CVA SUDDEN ONSLAUGHT LEFT SIDE WEAKNESS. PATIENT IS ALERT AND ORIENTATED X 4. ABLE TO AMBULATE TO RESTROOM BY HERSELF. HEALTHY HEART DIET. PATIENT RECEPTIVE TO CARE AND POLITE TO STAFF. APPEARS TO HAVE SLEPT ON AND OFF.
[2023-11-29 06:19] LABS: Anion Gap 13 mmol/L (3-11); Blood Urea Nitrogen 22 mg/dL (8-24); Bun/Creatinine Ratio 23.5 (12.0-20.0); CHOL/HDL RATIO 4.1; CO2, Blood 22 mmol/L (21-32); Calcium, Blood 8.7 mg/dL (8.5-10.1); Chloride, Blood 105 mmol/L (98-108); Cholesterol 131 mg/dL (50-200); Creatinine, Blood 0.94 mg/dL (0.40-1.00); Glomerular Filtration Rate 69 (60-); Glucose, Blood 88 mg/dL (70-99); HDL Cholesterol 32 mg/dL (>39); LDL/HDL RATIO 1.7; Low Density Lipoprotein Chol 54 mg/dL (0-110); Potassium, Blood 3.6 mmol/L (3.5-5.5); Sodium, Blood 136 mmol/L (136-145); Triglycerides 226 mg/dL (30-160); Very Low Density Lipoprot Chol 45 mg/dL (6-32)
[2023-11-29] MEDS ORDERED: Heparin Sodium,Porcine 5,000 UNIT/0.5 ML SDV SC SCH (08:00)
[2023-11-29] MEDS ORDERED: Aspirin 81 MG Chew PO SCH (09:00)
[2023-11-29] MEDS ORDERED: Enoxaparin 40 MG/0.4 ML SYR SC SCH (09:00)
[2023-11-29] MEDS ORDERED: Clopidogrel Bisulfate 75 MG Tab PO SCH (09:00)
[2023-11-29] MEDS ORDERED: Sertraline HCl 50 MG Tab PO SCH (09:00)
[2023-11-29] MEDS ORDERED: GlipiZIDE 5 MG Tab PO SCH (09:00)
[2023-11-29] MEDS ORDERED: Atorvastatin 40 MG Tab PO SCH (09:00)
[2023-11-29] MEDS ORDERED: Loperamide HCl 2 MG Cap PO PRN (14:10)
[2023-11-29] MEDS ORDERED: HydrALAZINE HCl 10 MG Tab PO PRN (16:40)
[2023-11-29] MEDS ORDERED: Losartan Potassium 50 MG Tab PO ONE (16:40)
--- NOTE | 2023-11-29 17:16 | NUR ---
SHIFT SUMMARY: JUSTINO RECEIVED MRI TODAY WHICH CONFIRMED CVA. HER B/P IS ELEVATED OVER 200 SYSTOLIC THIS AFTERNOON. PATIENT IS MEDICATED WITH 50MG LOSARTAN PER ORDER PO AND ORDER RECEIVED FOR HYDRALAZINE 10-20MG PO 26 PRN HYPERTENSION >160. PATIENT MET WITH PT TODAY AND NO PT SERVICES ARE NECESSARY PER THERAPY. SHE IS INDEPENDANT TO BATHROOM. DOES HAVE SOME MEMORY ISSUES FOR SHORT TERM MEMORY.
[2023-11-29] MEDS ORDERED: Losartan Potassium 50 MG Tab PO SCH (21:00)
[2023-11-30 02:53] VITALS: BP 153/70
[2023-11-30 06:13] LABS: BASOPHILS ABSOLUTE AUTO 0.08 K/mm3 (0.00-0.23); BASOPHILS PERCENT AUTO 1 % (0-2); EOSINOPHILS ABSOLUTE AUTO 0.48 K/mm3 (0.00-0.68); EOSINOPHILS PERCENT AUTO 6 % (0-6); Hematocrit 29.6 % (33.0-51.0); Hemoglobin 10.4 g/dL (11.5-16.0); IMMATURE GRAN ABSOLUTE AUTO 0.01 K/mm3 (0.00-0.10); IMMATURE GRAN PERCENT AUTO 0 % (0-1); LYMPHOCYTES ABSOLUTE AUTO 1.75 K/mm3 (0.84-5.20); LYMPHOCYTES PERCENT AUTO 22 % (21-46); MONOCYTES ABSOLUTE AUTO 0.71 K/mm3 (0.16-1.47); MONOCYTES PERCENT AUTO 9 % (4-13); Mean Corpuscular HGB 30.9 pg (26.0-34.0); Mean Corpuscular HGB Conc 35.1 g/dL (31.5-36.5); Mean Corpuscular Volume 88 fL (80-100); Mean Platelet Volume 10.3 fL (9.1-12.4); NEUTROPHILS ABSOLUTE AUTO 5.03 K/mm3 (1.96-9.15); NEUTROPHILS PERCENT AUTO 62 % (41-73); Platelet Count 259 K/mm3 (150-400); RDW Coefficient Variation 12.1 % (11.7-14.2); RDW Standard Deviation 39.2 fL (35.1-46.3); Red Blood Cell Count 3.37 M/mm3 (3.80-5.20); White Blood Cell Count 8.06 K/mm3 (4.00-11.30)
[2023-11-30 06:31] LABS: Albumin, Blood 2.4 g/dL (3.4-5.0); Albumin/Globulin Ratio 0.6 (0.8-1.8); Bilirubin, Total 0.2 mg/dL (0.1-1.0); Bun/Creatinine Ratio 22.1 (12.0-20.0); Calcium, Blood 8.3 mg/dL (8.5-10.1); Creatinine, Blood 1.13 mg/dL (0.40-1.00); Globulin, Blood 3.8 g/dL (2.2-4.0); Total Protein, Blood 6.2 g/dL (6.4-8.2)
--- NOTE | 2023-11-30 06:54 | NUR ---
SHIFT SUMMARY PATIENT HAD VISIT WITH DAUGHTER.DAUGHTER CONCERNED ABOUT ELEVATED BP AND HER MOM SEEMS MORE DISORIENTATED AND CLOUDY MENTALLY. VITALS OBTAINED AT 1923 (212/65) ADMINISTERED HYDRALZINE 10MG PO PER DR ORDER. BP RECHECKED AT 2134 (193/67). SET UP OXYGEN HOSE IN ROOM. SCD'S OBTAINED PER DR ORDER AND APPLIED. PATIENT TOLLERATED. PATIESNT STATES BM'S LOOSE DECLINED IMODIUM AT THIS TIME. ADVISED PATIENT WE WOULD RECHECK BP AT 0300. BP OBTAINED AT 0300 (153/70) BED AT LOW POSITION, RAILS X2, CALL LIGHT WITHIN REACH.
[2023-11-30 07:36] VITALS: BP 162/89
[2023-11-30] MEDS ORDERED: Lactated Ringer's 1,000 ML IV SCH (08:20)
[2023-11-30] MEDS ORDERED: Losartan Potassium 50 MG Tab PO SCH ×3 (09:00)
[2023-11-30] MEDS ORDERED: AmLODIPine Besylate 5 MG Tab PO SCH (09:00)
[2023-11-30 16:03] VITALS: BP 141/70
--- NOTE | 2023-11-30 16:09 | NUR ---
SUMMARY- PT A/O X3, OCC FORGETFUL TO DETAILS. L WEAKNESS RESOLVED. PT IS AMBULATORY AND STEADY ON FEET AMBULATES TO BATHROOM. TOLERATING FOOD AND FLUIDS. GETTING ADDITIONAL 1 LITER LR FOR HYDRATION FOR KIDNEY FUNCTION. ALSO STARTED ON HOME BP MEDS FOR BP TO LEVEL OUT. PT HAD ONE LOOSE STOOL, DID NOT ALERT RN AND UNABLE TO OBTAIN SAMPLE. 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
[2023-11-30 19:25] VITALS: BP 186/57
[2023-12-01 02:41] VITALS: BP 158/65
--- NOTE | 2023-12-01 04:05 | NUR ---
SHIFT SUMMARY. PATIENT IS A&OX3-PATIENT HAS EPISODES OF MILD CONFUSION. PATIENT UP TO BATHROOM INDEPENDENTLY WITH STEADY GAIT. DAUGHTER IN AT BEDSIDE TIL 2130. PATIENT IS PLEASANT AND COOPERATIVE WITH CARE. NO EVENTS NOTED ON TELE. PATIENTS BLOOD PRESSURE ELEVATED-PRN MEDICATION ADMINISTERED-REDUCED B/P. PATIENT DENIES ANY COMPLAINTS OR NEEDS. BED IS LOCKED IN THE LOWEST POSITION WITH CALL LIGHT IN REACH. CARE IS ONGOING.
[2023-12-01 06:03] LABS: Bun/Creatinine Ratio 21.8 (12.0-20.0); Calcium, Blood 8.5 mg/dL (8.5-10.1); Creatinine, Blood 1.19 mg/dL (0.40-1.00); Potassium, Blood 3.9 mmol/L (3.5-5.5)
[2023-12-01 07:06] VITALS: BP 187/58
[2023-12-01] MEDS ORDERED: AmLODIPine Besylate 5 MG Tab PO ONE (09:35)
[2023-12-01 11:33] VITALS: BP 170/58
[2023-12-01] MEDS ORDERED: HydrALAZINE HCl 25 MG Tab PO ONE (11:50)
[2023-12-01] MEDS ORDERED: Isosorbide Mononitrate 30 MG TABCR PO SCH (13:25)
[2023-12-01] MEDS ORDERED: HydrALAZINE HCl 25 MG Tab PO SCH (14:00)
[2023-12-01 14:42] VITALS: BP 150/70
--- NOTE | 2023-12-01 17:23 | NUR ---
SUMMARY- PT A/O X3-4, PERIODS OF CONFUSION AND FORGETFULNESS. PT UP IN CHAIR FOR MEALS. UP TO BATHROOM INDEPENDANTLY. DENIES L WEAKNESS. STATES HEADACHE THIS AFTERNOON, RELEIVED WITH TYLENOL. STARTED ON HYDRALAZINE AND IMDUR TO REGULATE BP, CAME DOWN SO 150/70 AT 1430. WANTING BETTER CONTROL BEFORE DC. PLAN FOR PT TO STAY ANOTHER NIGHT. PT REMAINS ON TELE, SR 70. PT TOLERATING FOOD AND FLUID. PLAN TO GO HOME WITH DAUGHTER WHO IS INVOLVED IN CARE.
[2023-12-01 19:41] VITALS: BP 165/64
--- NOTE | 2023-12-01 23:22 | NUR ---
PATIENT CAME OUT TO HALLWAY AND SAT IN CHAIR-PATIENT REPORTS A HEADACHE. THIS RN MEDICATED PER EMAR FOR PAIN. PATIENT GOT UP TO GO BACK TO BED AND WAS UNABLE TO MOVE FEET; STARTING TO LEAN FORWARD. PATIENT SAT BACK DOWN IN CHAIR-CBG OBTAINED, NUERO ASSESSMENT DONE-PATIENT HAS A CHANGE IN NUERO STATUS-PATIENT DID NOT KNOW THE PRESIDENT AT THIS TIME (SHE KNEW AT BEGINNING OF SHIFT), PATIENT INCREASINGLY CONFUSED, TREMORS TO BUE, TREMORS AROUND MOUTH, PATIENTS RIGHT PUPIL FIXED AND DILATED, PATIENT HAVING DIFFICULTY FINDING HER WORDS, PATIENT RUNNING SINUS RHYTHM AT 86 VIA TELEMETRY. PATIENT MOVED TO BED AND EKG OBTAINED. EKG SHOWED NORMAL SINUS RHYTHM WITH A VENT. RATE OF 78bpm. AT THIS TIME PATIENT IS CLOSE TO BASE, STRENGTHS EQUAL IN BUE AND BLE. PATIENT IS ABLE TO TALK WITH SOME TREMORS STILL TO MOUTH.
--- NOTE | 2023-12-01 23:44 | NUR ---
8513 HOSPITALIST ANICETO DAIRY [employer]IES SALES REPRESENTATIVE CONTACTED. HOSPITALIST ANICETO NOTIFIED OF CHANGES IN PATIENTS CONDITION THAT HAVE RESOLVED-SEE PREVIOUS NOTED. HOSPITALIST ADVISED TO CONTINUE TO MONITOR AND NOTIFY PROVIDER OF ANY FURTHER EPISODES OR CHANGES.
[2023-12-02 03:26] VITALS: BP 125/58
--- NOTE | 2023-12-02 04:26 | NUR ---
SHIFT SUMMARY. PATIENT HAD EPISODE OF NUERO CHANGES AND TREMORS-SEE PREVIOUS NOTES. PATIENT IS A&OX3 WITH FORGETFULNESS. PATIENT IS PLEASANT AND COOPERATIVE WITH CARE. PATIENT TELE IS ON WITH LEADS IN PLACE-NO EVENTS NOTED. PATIENT INDEPENDENT IN ROOM TO RESTROOM-PATIENT WILL CALL IF SHE FEELS WEAK OR OFF. PATIENT RESTING SECOND HALF OF SHIFT WITH RESPIRATIONS EQUAL AND UNLABORED. BED IS LOCKED IN THE LOWEST POSITION WITH CALL LIGHT IN REACH. CARE IS ONGOING.
[2023-12-02 07:41] VITALS: BP 142/58
[2023-12-02] MEDS ORDERED: Atorvastatin 40 MG Tab PO SCH (09:00)
[2023-12-02] MEDS ORDERED: AmLODIPine Besylate 5 MG Tab PO SCH (09:00)
[2023-12-02 12:46] LABS: Source, Urine Clean Catch
[2023-12-02 12:52] LABS: Appearance, Urine Clear (Clear); Bilirubin, Urine Neg (Neg); Blood, Urine Neg (Neg); Color, Urine Yellow (P-Yellow); Glucose Qualitative, Urine Neg (Neg); Ketones, Urine Neg (Neg); Leukocyte Esterase, Urine 3+ (Neg); Nitrite, Urine Neg (Neg); Protein, Urine 3+ (Neg); Urobilinogen, Urine NORM (Normal)
[2023-12-02 12:59] LABS: Bacteria Few /hpf; Squamous Epithelial Cells Many /hpf (Few)
[2023-12-02] MEDS ORDERED: AMLO10 PO (13:43)
[2023-12-02] MEDS ORDERED: CLOP75 PO (13:43)
[2023-12-02] MEDS ORDERED: HYDRA25 PO (13:44)
[2023-12-02] MEDS ORDERED: Isosorbide Mono30 MG PO (13:45)
--- NOTE | 2023-12-02 14:30 | NUR ---
SHIFT SUMMARY AND DISCHARGE PATIENT ALERT AND INTERACTIVE. PATIENT UP TO BR WITH MINIMAL ASSIST. PATIENT DISCHARGED TO HOME. DISCHARGE INSTRUCTIONS REVIEWED WITH PATIENT AND DAUGHTER. RX SENT TO [facility] PER DAUGHTERS REQUEST. IV DC'D, TELE REMOVED, RX FOR LABS, PT AND DAUGHTER'S FMLA PROVIDED. PATIENT STATING SHE FEELS LIKE SHE IS HAVING UTI SYMPTOMS. UA SENT PER ORDERS. PATIENT TO FOLLOW UP WITH PCP IN 3 DAYS.
== END 2023-12-02 14:08 | disposition home or self-care (01) | DRG 64 ==
LOC: ER 20:50 → ERHOLD 20:51 → MEDS 11-29 02:21 → ENPENDDIS 12-02 11:17 → MEDS 12-02 14:08
PROVIDERS: Emergency Medicine; Family Medicine; Internal Medicine; ADMIT Internal Medicine
DX: I63.9 Cerebral infarction, unspecified (principal); G92.8 Other toxic encephalopathy; G81.94 Hemiplegia, unspecified affecting left nondominant side; N17.9 Acute kidney failure, unspecified; I10 Essential (primary) hypertension; E78.5 Hyperlipidemia, unspecified; F41.9 Anxiety disorder, unspecified; H54.7 Unspecified visual loss; F15.10 Other stimulant abuse, uncomplicated; Z87.440 Personal history of urinary (tract) infections; Z87.891 Personal history of nicotine dependence; Z88.8 Allergy status to other drugs, medicaments and biological substances; Z79.82 Long term (current) use of aspirin; Z79.84 Long term (current) use of oral hypoglycemic drugs; Z79.4 Long term (current) use of insulin; Z79.899 Other long term (current) drug therapy; Z79.811 Long term (current) use of aromatase inhibitors; Z79.02 Long term (current) use of antithrombotics/antiplatelets; Z90.89 Acquired absence of other organs
CPT/HCPCS: 0241U; 36415; 70450; 70496; 70498; 70551; 71045; 74177; 80048; 80053; 80061; 81001; 82947; 83036; 85025; 87086; 93005; 93010; 93246; 96372; 97161; 97530; 99285-25; A9270; G0378; J1644; J7030; J7120; P9612; Q9967

== ENCOUNTER 2023-12-14 17:19 | Emergency (ER) | payer MEDICARE, OTHER ==
[~2023-12-14] VITALS: Ht 167.6 cm; Wt 68.0 kg
[~2023-12-14 17:19] MED LIST changes: +AMLO10 PO; +HYDRA25 PO; +Isosorbide Mono30 MG PO; +LOSARTAN-HCTZ1 EAC6 PO; +MYRBETRIQ25 MG PO; +ZOLOFT25 MG PO
[2023-12-14 18:00] LABS: BASOPHILS ABSOLUTE AUTO 0.09 K/mm3 (0.00-0.23); BASOPHILS PERCENT AUTO 1 % (0-2); EOSINOPHILS ABSOLUTE AUTO 0.37 K/mm3 (0.00-0.68); EOSINOPHILS PERCENT AUTO 3 % (0-6); Hematocrit 27.2 % (33.0-51.0); Hemoglobin 9.2 g/dL (11.5-16.0); IMMATURE GRAN ABSOLUTE AUTO 0.04 K/mm3 (0.00-0.10); IMMATURE GRAN PERCENT AUTO 0 % (0-1); LYMPHOCYTES ABSOLUTE AUTO 1.68 K/mm3 (0.84-5.20); LYMPHOCYTES PERCENT AUTO 14 % (21-46); MONOCYTES ABSOLUTE AUTO 0.98 K/mm3 (0.16-1.47); MONOCYTES PERCENT AUTO 8 % (4-13); Mean Corpuscular HGB 30.4 pg (26.0-34.0); Mean Corpuscular HGB Conc 33.8 g/dL (31.5-36.5); Mean Corpuscular Volume 90 fL (80-100); NEUTROPHILS ABSOLUTE AUTO 8.87 K/mm3 (1.96-9.15); NEUTROPHILS PERCENT AUTO 74 % (41-73); Platelet Count 365 K/mm3 (150-400); RDW Coefficient Variation 12.3 % (11.7-14.2); RDW Standard Deviation 40.5 fL (35.1-46.3); Red Blood Cell Count 3.03 M/mm3 (3.80-5.20); White Blood Cell Count 12.03 K/mm3 (4.00-11.30)
[2023-12-14 18:27] LABS: Albumin, Blood 2.4 g/dL (3.4-5.0); Albumin/Globulin Ratio 0.5 (0.8-1.8); Bilirubin, Total 0.4 mg/dL (0.1-1.0); Bun/Creatinine Ratio 33.8 (12.0-20.0); Calcium, Blood 9.3 mg/dL (8.5-10.1); Creatinine, Blood 0.8 mg/dL (0.40-1.00); Globulin, Blood 4.7 g/dL (2.2-4.0); Magnesium, Blood 2.5 mg/dL (1.6-2.4); Total Protein, Blood 7.1 g/dL (6.4-8.2)
[2023-12-14 20:25] LABS: Source, Urine Straight Cath
[2023-12-14 20:29] LABS: Appearance, Urine Clear (Clear); Bilirubin, Urine Neg (Neg); Blood, Urine Neg (Neg); Color, Urine Yellow (P-Yellow); Glucose Qualitative, Urine Neg (Neg); Ketones, Urine Neg (Neg); Leukocyte Esterase, Urine 1+ (Neg); Nitrite, Urine Neg (Neg); Protein, Urine 3+ (Neg); Urobilinogen, Urine NORM (Normal)
[2023-12-14 20:41] LABS: Bacteria Many /hpf; Red Blood Cells, Urine Not Seen /hpf (0-2); Squamous Epithelial Cells Few /hpf (Few)
[2023-12-14 21:07] LABS: Influenza A, PCR NEGATIVE (NEGATIVE); Influenza B, PCR NEGATIVE (NEGATIVE); Resp Syncytial Virus, PCR NEGATIVE (NEGATIVE); SARS-Cov-2 (COVID-19) PCR, MMC NEGATIVE (NEGATIVE)
[2023-12-15] MEDS ORDERED: Cefdinir 300 MG Cap PO SCH (09:00)
[2023-12-15] MEDS ORDERED: CEFD300 PO (11:04)
[2023-12-15 11:37] VITALS: BP 146/74
== END 2023-12-15 11:38 | disposition home or self-care (01) ==
LOC: ER 17:19
PROVIDERS: Emergency Medicine; Physician Assistant
DX: R53.1 Weakness (principal); N39.0 Urinary tract infection, site not specified; E11.9 Type 2 diabetes mellitus without complications; I10 Essential (primary) hypertension; F17.210 Nicotine dependence, cigarettes, uncomplicated; Z79.4 Long term (current) use of insulin; Z79.82 Long term (current) use of aspirin; Z79.899 Other long term (current) drug therapy; Z88.8 Allergy status to other drugs, medicaments and biological substances; Z86.73 Personal history of transient ischemic attack (TIA), and cerebral infarction without residual deficits
CPT/HCPCS: 0241U; 80053; 81001; 82947; 83690; 83735; 84443; 85025; 87086; 97112; 97116; 97162; 99284; A9270

== ENCOUNTER 2024-03-25 14:10 | Emergency (ER) | payer MEDICARE, OTHER ==
[~2024-03-25] VITALS: Ht 165.1 cm; Wt 70.8 kg
[~2024-03-25 14:10] MED LIST changes: +CEFD300 PO
[2024-03-25 15:45] LABS: BASOPHILS ABSOLUTE AUTO 0.07 K/mm3 (0.00-0.23); BASOPHILS PERCENT AUTO 1 % (0-2); EOSINOPHILS ABSOLUTE AUTO 0.17 K/mm3 (0.00-0.68); EOSINOPHILS PERCENT AUTO 2 % (0-6); Hematocrit 35.6 % (33.0-51.0); Hemoglobin 12.4 g/dL (11.5-16.0); IMMATURE GRAN ABSOLUTE AUTO 0.02 K/mm3 (0.00-0.10); IMMATURE GRAN PERCENT AUTO 0 % (0-1); LYMPHOCYTES ABSOLUTE AUTO 2.44 K/mm3 (0.84-5.20); LYMPHOCYTES PERCENT AUTO 25 % (21-46); MONOCYTES ABSOLUTE AUTO 0.55 K/mm3 (0.16-1.47); MONOCYTES PERCENT AUTO 6 % (4-13); Mean Corpuscular HGB 30.8 pg (26.0-34.0); Mean Corpuscular HGB Conc 34.8 g/dL (31.5-36.5); Mean Corpuscular Volume 88 fL (80-100); NEUTROPHILS ABSOLUTE AUTO 6.59 K/mm3 (1.96-9.15); NEUTROPHILS PERCENT AUTO 67 % (41-73); Platelet Count 297 K/mm3 (150-400); RDW Coefficient Variation 12.9 % (11.7-14.2); RDW Standard Deviation 41.8 fL (35.1-46.3); Red Blood Cell Count 4.03 M/mm3 (3.80-5.20); White Blood Cell Count 9.84 K/mm3 (4.00-11.30)
[2024-03-25 16:05] LABS: Albumin/Globulin Ratio 0.8 (0.8-1.8); Bilirubin, Total 0.3 mg/dL (0.1-1.0); Bun/Creatinine Ratio 32.4 (12.0-20.0); Calcium, Blood 9.1 mg/dL (8.5-10.1); Creatinine, Blood 1.08 mg/dL (0.40-1.00); Potassium, Blood 3.7 mmol/L (3.5-5.5)
[2024-03-25] MEDS ORDERED: Ondansetron HCl 2 MG / ML 2ML Vial IV ONE (18:45)
[2024-03-25] MEDS ORDERED: Meclizine HCl 25 MG Tab PO ONE (18:45)
[2024-03-25] MEDS ORDERED: HydrALAZINE HCl 25 MG Tab PO ONE (18:50)
[2024-03-25] MEDS ORDERED: HydroCHLOROthiazide 25 mg Tab PO ONE (18:55)
[2024-03-25] MEDS ORDERED: Sacubitril/Valsartan 24 MG-26 MG Tab PO ONE (18:55)
[2024-03-25] MEDS ORDERED: ONDANSETRON ODT16 MG PO (19:36)
[2024-03-25] MEDS ORDERED: CEPH500 PO (19:36)
[2024-03-25] MEDS ORDERED: ENTRESTO 24 MG1 EAC3 PO (19:37)
[2024-03-25] MEDS ORDERED: HYDCHL25 PO (19:38)
[2024-03-25] MEDS ORDERED: VITAMIN D32000 UNI1 PO (19:38)
[2024-03-25 20:30] VITALS: BP 219/74
== END 2024-03-25 20:44 | disposition home or self-care (01) ==
LOC: ER 14:10
PROVIDERS: Student in an Organized Health Care Education/Training Program
DX: I16.0 Hypertensive urgency (principal); I10 Essential (primary) hypertension; E11.9 Type 2 diabetes mellitus without complications; E78.5 Hyperlipidemia, unspecified; F17.210 Nicotine dependence, cigarettes, uncomplicated; Z86.73 Personal history of transient ischemic attack (TIA), and cerebral infarction without residual deficits; Z79.02 Long term (current) use of antithrombotics/antiplatelets; Z79.82 Long term (current) use of aspirin; Z88.8 Allergy status to other drugs, medicaments and biological substances
CPT/HCPCS: 80053; 85025; 93005; 93010; 96374; 99284-25; A9270; J2405

== ENCOUNTER 2024-04-07 06:28 | Day surgery (SDC) | payer MEDICARE, OTHER ==
[~2024-04-07] VITALS: Ht 165.1 cm; Wt 72.3 kg
[~2024-04-07 06:28] MED LIST changes: +CEPH500 PO; +ENTRESTO 24 MG1 EAC3 PO; +HYDCHL25 PO; +ONDANSETRON ODT16 MG PO; +VITAMIN D32000 UNI1 PO
[2024-04-07] MEDS ORDERED: LOSARTAN POTAS100 MG (07:10)
[2024-04-07] MEDS ORDERED: METO10 (07:10)
[2024-04-07] MEDS ORDERED: SERT25 (07:11)
[2024-04-07] MEDS ORDERED: Lactated Ringer's 1,000 ML IV ONE ×2 (07:45→07:50)
[2024-04-07] MEDS ORDERED: propofoL 50 ML IV ONE (07:50)
[2024-04-07] MEDS ORDERED: Ondansetron HCl 2 MG / ML 2ML Vial ONE (08:10)
[2024-04-07 08:41] VITALS: BP 158/66
--- NOTE | 2024-04-07 08:44 | NUR ---
04/07/24 0844 Judy Raygoza PATIENT C/O NAUSEA POST PROCEDURE BUT BOTH PATIENT AND HER DAUGHTER STATE NAUSEA IS A VERY COMMON OCCURENCE FOR PATIENT. PER RN RDS, PT DID RECEIVE 4MG ZOFRAN IV IN PROCEDURE.
--- NOTE | 2024-04-07 09:07 | NUR ---
04/07/24 0907 KATYA GUERRERO PT STATES NAUSEA BASELINE PREOPERATIVELY. END NOTE RDS
--- NOTE | 2024-04-07 09:09 | NUR ---
04/07/24 0909 KATYA GUERRERO PT HYPERTENSIVE PRIOR TO SEDATION. AWARE AND OK TO CONTINUE TO START SEDATION. END NOTE RDS
== END 2024-04-07 08:55 | disposition home or self-care (01) ==
LOC: ORSCSDS 06:28
PROVIDERS: Specialist
PROC: 0DB48ZX Excision of Esophagogastric Junction, Via Natural or Artificial Opening Endoscopic, Diagnostic (ICD-10-PCS; principal; 2024-04-07 08:00)
PROC: 0DB68ZX Excision of Stomach, Via Natural or Artificial Opening Endoscopic, Diagnostic (ICD-10-PCS; principal; 2024-04-07 08:00)
DX: R11.2 Nausea with vomiting, unspecified (principal); K22.10 Ulcer of esophagus without bleeding; K21.00 Gastro-esophageal reflux disease with esophagitis, without bleeding; K29.70 Gastritis, unspecified, without bleeding; K44.9 Diaphragmatic hernia without obstruction or gangrene; E11.9 Type 2 diabetes mellitus without complications; I10 Essential (primary) hypertension; F41.9 Anxiety disorder, unspecified; F17.210 Nicotine dependence, cigarettes, uncomplicated; Z79.82 Long term (current) use of aspirin; Z79.899 Other long term (current) drug therapy
CPT/HCPCS: 82947; 88305; 88312; 88342; J2405; J2704; J7120

== ENCOUNTER 2024-04-14 14:35 | Emergency (ER) | payer MEDICARE, OTHER ==
[~2024-04-14] VITALS: Ht 160 cm; Wt 74.8 kg
[~2024-04-14 14:35] MED LIST changes: +LOSARTAN POTAS100 MG; +METO10; +SERT25
[2024-04-14 15:23] VITALS: BP 200/60
== END 2024-04-14 15:34 | disposition left against medical advice (07) ==
LOC: ER 14:35
DX: R41.0 Disorientation, unspecified (principal); Z53.29 Procedure and treatment not carried out because of patient's decision for other reasons
CPT/HCPCS: 99281

== ENCOUNTER → 2024-06-08 | Outpatient (CLI) | payer MEDICARE, OTHER ==
[2024-06-09 12:36] LABS: Appearance, Urine Hazy (Clear); Bilirubin, Urine Neg (Neg); Blood, Urine 1+ (Neg); Color, Urine Yellow (P-Yellow); Glucose Qualitative, Urine 2+ (Neg); Ketones, Urine Neg (Neg); Leukocyte Esterase, Urine Neg (Neg); Nitrite, Urine Neg (Neg); Protein, Urine 4+ (Neg); Source, Urine Voided; Specific Gravity, Urine 1.015 (1.003-1.022); Urobilinogen, Urine NORM (Normal)
[2024-06-09 13:18] LABS: Amorphous Light (0-Heavy); Bacteria Many /hpf; Mucus Light (0-Heavy); Red Blood Cells, Urine 0-2 /hpf (0-2); Squamous Epithelial Cells Few /hpf (Few)
== END | disposition home or self-care (01) ==
LOC: LAB 11:34 → LAB SHORT 11:34
PROVIDERS: Family Medicine
DX: N39.0 Urinary tract infection, site not specified (principal)
CPT/HCPCS: 81001; 87086

== ENCOUNTER → 2024-06-29 | Outpatient (CLI) | payer MEDICARE, OTHER ==
[2024-06-29 14:06] LABS: Appearance, Urine Cloudy (Clear); Bilirubin, Urine Neg (Neg); Blood, Urine 2+ (Neg); Color, Urine Yellow (P-Yellow); Glucose Qualitative, Urine Neg (Neg); Ketones, Urine Neg (Neg); Leukocyte Esterase, Urine 1+ (Neg); Nitrite, Urine Neg (Neg); Protein, Urine 4+ (Neg); Specific Gravity, Urine 1.015 (1.003-1.022); Urobilinogen, Urine NORM (Normal); pH, Urine 6.5 (5.0-8.0)
[2024-06-29 14:31] LABS: Bacteria Many /hpf; Mucus Light (0-Heavy); Red Blood Cells, Urine 0-2 /hpf (0-2); Squamous Epithelial Cells Many /hpf (Few)
[2024-06-29 14:32] LABS: Hyaline Casts 0-2 /lpf (0-2); Transitional Epithelial Cells Few /hpf (0-Rare)
== END ==
LOC: LAB SHORT 13:14 → LAB 13:14
PROVIDERS: Family Medicine
DX: N39.0 Urinary tract infection, site not specified (principal)
CPT/HCPCS: 81001; 87077; 87086; 87186

== ENCOUNTER 2024-07-14 13:57 | Emergency (ER) | payer MEDICARE, OTHER ==
[~2024-07-14] VITALS: Ht 165.1 cm; Wt 68.0 kg
[2024-07-14] MEDS ORDERED: LORazepam 2 MG/ML 1ML Injection IV ONE (14:30)
[2024-07-14 14:52] LABS: BASOPHILS ABSOLUTE AUTO 0.06 K/mm3 (0.00-0.23); BASOPHILS PERCENT AUTO 1 % (0-2); EOSINOPHILS ABSOLUTE AUTO 0.18 K/mm3 (0.00-0.68); EOSINOPHILS PERCENT AUTO 2 % (0-6); Hematocrit 28.7 % (33.0-51.0); Hemoglobin 9.9 g/dL (11.5-16.0); IMMATURE GRAN ABSOLUTE AUTO 0.03 K/mm3 (0.00-0.10); IMMATURE GRAN PERCENT AUTO 0 % (0-1); LYMPHOCYTES ABSOLUTE AUTO 1.56 K/mm3 (0.84-5.20); LYMPHOCYTES PERCENT AUTO 13 % (21-46); MONOCYTES ABSOLUTE AUTO 0.74 K/mm3 (0.16-1.47); MONOCYTES PERCENT AUTO 6 % (4-13); Mean Corpuscular HGB 31.2 pg (26.0-34.0); Mean Corpuscular HGB Conc 34.5 g/dL (31.5-36.5); Mean Corpuscular Volume 91 fL (80-100); Mean Platelet Volume 10.8 fL (9.1-12.4); NEUTROPHILS ABSOLUTE AUTO 9.04 K/mm3 (1.96-9.15); NEUTROPHILS PERCENT AUTO 78 % (41-73); Platelet Count 268 K/mm3 (150-400); RDW Coefficient Variation 12.8 % (11.7-14.2); RDW Standard Deviation 42.6 fL (35.1-46.3); Red Blood Cell Count 3.17 M/mm3 (3.80-5.20); White Blood Cell Count 11.61 K/mm3 (4.00-11.30)
[2024-07-14 15:15] LABS: Albumin, Blood 2.4 g/dL (3.4-5.0); Albumin/Globulin Ratio 0.6 (0.8-1.8); Bilirubin, Total 0.4 mg/dL (0.1-1.0); Bun/Creatinine Ratio 15.9 (12.0-20.0); Calcium, Blood 8.5 mg/dL (8.5-10.1); Creatinine, Blood 1.38 mg/dL (0.40-1.00); Globulin, Blood 3.9 g/dL (2.2-4.0); Potassium, Blood 3.7 mmol/L (3.5-5.5); Total Protein, Blood 6.3 g/dL (6.4-8.2)
[2024-07-14 15:27] LABS: Source, Urine Voided
[2024-07-14 15:38] LABS: Appearance, Urine Hazy (Clear); Bilirubin, Urine Neg (Neg); Blood, Urine 2+ (Neg); Glucose Qualitative, Urine Neg (Neg); Ketones, Urine Neg (Neg); Leukocyte Esterase, Urine 2+ (Neg); Nitrite, Urine Neg (Neg); Protein, Urine 4+ (Neg); Urobilinogen, Urine NORM (Normal)
[2024-07-14 15:53] LABS: Bacteria Many /hpf; Color, Urine Pale Yellow (P-Yellow); Mucus Light (0-Heavy); Red Blood Cells, Urine 0-2 /hpf (0-2); Squamous Epithelial Cells Mod /hpf (Few); White Blood Cells, Urine 25-50 /hpf (0-5)
[2024-07-14 15:54] LABS: Transitional Epithelial Cells Rare /hpf (0-Rare)
[2024-07-14] MEDS ORDERED: CefTRIAXone Sodium 1,000 MG in NS 50 ML IV ONE (16:10)
[2024-07-14] MEDS ORDERED: Macrobid 100 M100 MG PO (16:23)
[2024-07-14 17:08] VITALS: BP 181/64
== END 2024-07-14 17:10 | disposition home or self-care (01) ==
LOC: ER 13:57
PROVIDERS: Emergency Medicine
DX: N39.0 Urinary tract infection, site not specified (principal); F17.210 Nicotine dependence, cigarettes, uncomplicated; I10 Essential (primary) hypertension; E78.5 Hyperlipidemia, unspecified; E11.9 Type 2 diabetes mellitus without complications; Z88.8 Allergy status to other drugs, medicaments and biological substances; Z88.9 Allergy status to unspecified drugs, medicaments and biological substances; Z79.1 Long term (current) use of non-steroidal anti-inflammatories (NSAID); Z79.899 Other long term (current) drug therapy; Z79.84 Long term (current) use of oral hypoglycemic drugs; Z79.02 Long term (current) use of antithrombotics/antiplatelets; Z79.82 Long term (current) use of aspirin
CPT/HCPCS: 70450; 80053; 81001; 82947; 85025; 87077; 87086; 87186; 93005; 93010; 96365; 99284-25; J0696

== ENCOUNTER → 2024-07-28 | Outpatient (CLI) | payer MEDICARE, OTHER ==
[~2024-07-28] MED LIST changes: +Macrobid 100 M100 MG PO
[2024-07-28 19:54] LABS: CHOL/HDL RATIO 3.1; Cholesterol 154 mg/dL (50-200); HDL Cholesterol 49 mg/dL (>39); LDL/HDL RATIO 1.5; Low Density Lipoprotein Chol 75 mg/dL (0-110); Triglycerides 151 mg/dL (30-160); Very Low Density Lipoprot Chol 30 mg/dL (6-32)
[2024-07-28 20:08] LABS: Magnesium, Blood 2.3 mg/dL (1.6-2.4)
[2024-07-28 20:12] LABS: Albumin, Blood 3.1 g/dL (3.4-5.0); Albumin/Globulin Ratio 0.9 (0.8-1.8); Bilirubin, Total 0.9 mg/dL (0.1-1.0); Bun/Creatinine Ratio 17.9 (12.0-20.0); Calcium, Blood 9.3 mg/dL (8.5-10.1); Creatinine, Blood 1.68 mg/dL (0.40-1.00); Globulin, Blood 3.6 g/dL (2.2-4.0); Potassium, Blood 4.1 mmol/L (3.5-5.5); Total Protein, Blood 6.7 g/dL (6.4-8.2)
== END | disposition home or self-care (01) ==
LOC: LAB SHORT 16:58 → LAB 16:58
PROVIDERS: Family Medicine
DX: E11.9 Type 2 diabetes mellitus without complications (principal); E55.9 Vitamin D deficiency, unspecified; I10 Essential (primary) hypertension
CPT/HCPCS: 80053; 80061; 82306; 83735; 84100

== ENCOUNTER → 2024-08-14 | Outpatient (CLI) | payer MEDICARE, OTHER ==
[2024-08-15 20:05] LABS: Bilirubin, Urine Neg (Neg); Blood, Urine 3+ (Neg); Glucose Qualitative, Urine 1+ (Neg); Ketones, Urine Neg (Neg); Leukocyte Esterase, Urine 2+ (Neg); Nitrite, Urine Pos (Neg); Protein, Urine 4+ (Neg); Specific Gravity, Urine 1.015 (1.003-1.022); Urobilinogen, Urine NORM (Normal)
[2024-08-15 20:18] LABS: Appearance, Urine Hazy (Clear); Bacteria Many /hpf; Color, Urine Yellow (P-Yellow); Red Blood Cells, Urine 0-2 /hpf (0-2); Squamous Epithelial Cells Few /hpf (Few); White Blood Cells, Urine 25-50 /hpf (0-5)
== END ==
LOC: LAB 21:00 → LAB SHORT 21:00
PROVIDERS: Family Medicine
DX: N39.0 Urinary tract infection, site not specified (principal)
CPT/HCPCS: 81001; 87077; 87086; 87186

== ENCOUNTER → 2024-11-02 | Outpatient (CLI) | payer MEDICARE, OTHER ==
[2024-11-02 13:46] LABS: Source, Urine Voided
[2024-11-02 15:14] LABS: Bilirubin, Urine Neg (Neg); Color, Urine Yellow (P-Yellow); Glucose Qualitative, Urine Neg (Neg); Ketones, Urine Neg (Neg); Leukocyte Esterase, Urine Neg (Neg); Protein, Urine 2+ (Neg); Specific Gravity, Urine 1.015 (1.003-1.022); Urobilinogen, Urine 1+ (Normal)
[2024-11-02 15:25] LABS: Red Blood Cells, Urine 0-2 /hpf (0-2); White Blood Cells, Urine 0-2 /hpf (0-5)
== END ==
LOC: LAB SHORT 13:44 → LAB 13:44
PROVIDERS: Family Medicine
DX: N39.0 Urinary tract infection, site not specified (principal)
CPT/HCPCS: 81001; 87077; 87086; 87186

== ENCOUNTER → 2024-11-14 | Outpatient (CLI) | payer MEDICARE, OTHER ==
[2024-11-15 15:38] LABS: Bilirubin, Urine Neg (Neg); Color, Urine Yellow (P-Yellow); Ketones, Urine Neg (Neg); Protein, Urine 4+ (Neg); Specific Gravity, Urine 1.015 (1.003-1.022); Urobilinogen, Urine NORM (Normal)
[2024-11-15 15:52] LABS: Glucose Qualitative, Urine 1+ (Neg); Leukocyte Esterase, Urine 1+ (Neg)
== END ==
LOC: LAB SHORT 21:10 → LAB 21:10
PROVIDERS: Family Medicine
DX: N39.0 Urinary tract infection, site not specified (principal)
CPT/HCPCS: 81001; 87077; 87086; 87186

== ENCOUNTER → 2024-12-01 | Outpatient (CLI) | payer MEDICARE, OTHER ==
[2024-12-02 16:35] LABS: Source, Urine Voided
[2024-12-02 17:43] LABS: Bilirubin, Urine Neg (Neg); Glucose Qualitative, Urine 1+ (Neg); Ketones, Urine Neg (Neg); Leukocyte Esterase, Urine 1+ (Neg); Protein, Urine 4+ (Neg); Specific Gravity, Urine 1.015 (1.003-1.022); Urobilinogen, Urine NORM (Normal)
[2024-12-02 17:49] LABS: Color, Urine Pale Yellow (P-Yellow)
[2024-12-02 17:51] LABS: White Blood Cells, Urine 25-50 /hpf (0-5)
== END ==
LOC: LAB 16:33 → LAB SHORT 16:33
PROVIDERS: Family Medicine
DX: N39.0 Urinary tract infection, site not specified (principal)
CPT/HCPCS: 81001; 87077; 87086; 87186